=== PATIENT | female | born 1990 | race African-American/Black ===

== ENCOUNTER 2017-04-04 13:19 | Emergency (ER) | payer OTHER ==
--- NOTE | 2017-04-04 14:10 | ER Document Report ---
ED Respiratory Problem - General Chief Complaint: Shortness Of Breath Stated Complaint: SHORTNESS OF BREATH Time Seen by Provider: 04/04/17 13:59 Notes: 26 yo female c/o "lump" in throat, pressure in right side of face and ear, feels dizzy and a little short of breath. all symptoms started this morning. no fever. no cough. + post nasal drip TRAVEL OUTSIDE OF THE [place] IN LAST 30 DAYS: No - HPI Onset: This morning Duration: Intermittent episodes Quality of pain: No pain Short of Breath: Mild Associated symptoms: Congestion, Cough, Facial pain, Sinus pain/pressure, Sore Throat. denies: Fever Similar symptoms previously: No Recently seen / treated by doctor: No Past Medical History - General Information source: Patient - Social History Smoking Status: Never Smoker Chew tobacco use (# tins/day): No Frequency of alcohol use: None Drug Abuse: None Lives with: Family Family History: Reviewed & Not Pertinent Patient has suicidal ideation: No Patient has homicidal ideation: No - Medical History Medical History: Negative Renal/ Medical History: Denies: Hx Peritoneal Dialysis GI Medical History: Reports: Hx Gastroesophageal Reflux Disease - Immunizations Hx Diphtheria, Pertussis, Tetanus Vaccination: Yes Review of Systems - Review of Systems Constitutional: No symptoms reported EENT: See HPI Cardiovascular: No symptoms reported Respiratory: See HPI Gastrointestinal: No symptoms reported Genitourinary: No symptoms reported Female Genitourinary: No symptoms reported Musculoskeletal: No symptoms reported Skin: No symptoms reported Hematologic/Lymphatic: No symptoms reported Neurological/Psychological: No symptoms reported Physical Exam - Vital signs Vitals: Temp Pulse Resp BP Pulse Ox 98.2 F 76 20 143/72 H 100 04/04/17 13:25 04/04/17 13:25 04/04/17 13:25 04/04/17 13:25 04/04/17 13:25 Interpretation: Normal - General General appearance: Appears well, Alert In distress: None - HEENT Head: Normocephalic, Atraumatic Eyes: Normal Conjunctiva: Normal Pupils: PERRL External canal: Normal Tympanic membrane: Serous effusion - right Sinus: Normal Mucous membranes: Normal, Moist Pharynx: Erythema. No: Tonsillar hypertrophy, Uvular edema, Potential airway comprom. Neck: Anterior cervical chain - right - Respiratory Respiratory status: No respiratory distress Chest status: Nontender Breath sounds: Normal Chest palpation: Normal - Cardiovascular Rhythm: Regular Heart sounds: Normal auscultation Murmur: No - Abdominal Inspection: Normal Distension: No distension Bowel sounds: Normal Tenderness: Nontender Organomegaly: No organomegaly - Back Back: Normal, Nontender - Extremities General upper extremity: Normal inspection, Nontender, Normal color, Normal ROM , Normal temperature General lower extremity: Normal inspection, Nontender, Normal color, Normal ROM , Normal temperature, Normal weight bearing. No: Lorie's sign - Neurological Neuro grossly intact: Yes Cognition: Normal Orientation: AAOx4 [place] Coma Scale Eye Opening: Spontaneous [place] Coma Scale Verbal: Oriented [place] Coma Scale Motor: Obeys Commands [place] Coma Scale Total: 15 Speech: Normal Motor strength normal: LUE, RUE, LLE, RLE Sensory: Normal - Psychological Associated symptoms: Normal affect, Normal mood - Skin Skin Temperature: Warm Skin Moisture: Dry Skin Color: Normal Course - Re-evaluation Re-evalutation: 04/04/17 14:09 no s/s soheila's. will get soft tissue neck. 04/04/17 14:50 soft tissue neck normal. results reviewed with patient. pt stable for discharge - Vital Signs Vital signs: Temp Pulse Resp BP Pulse Ox 98.2 F 76 20 143/72 H 100 04/04/17 13:25 04/04/17 13:25 04/04/17 13:25 04/04/17 13:25 04/04/17 13:25 Discharge - Discharge Clinical Impression: Sore throat Acute serous otitis media, right ear Qualifiers: Recurrence: not specified as recurrent Qualified Code(s): H65.01 - Acute serous otitis media, right ear Condition: Stable Disposition: HOME, SELF-CARE Instructions: Steroid Medication, Serous Otitis Media ([facility]), Decongestant- Antihistamine Medication ([facility]) Additional Instructions: Your throat xray was normal today I am prescribing an oral steroid to help with soft tissue swellling I recommend an over the counter antihistamine/decongestant such as Ayse D or Zyrtec D to help dry the fluid behind your right ear drum. This fluid may be the cause of your dizziness Push fluids and follow up with your primary care if symptoms persist Prescriptions: Prednisone [Deltasone 20 mg Tablet] 2 tab PO BID 16 Days
--- NOTE | 2017-04-04 15:05 | RADIOLOGY REPORT (SQ) ---
EXAM DESCRIPTION: SOFT TISSUE NECK COMPLETED DATE/TIME: 04/04/2017 2:24 pm REASON FOR STUDY: "lump" in throat COMPARISON: None. NUMBER OF VIEWS: Two views. TECHNIQUE: AP and lateral radiographic image of the soft tissues of the neck. LIMITATIONS: None. FINDINGS: EPIGLOTTIS: Normal. Contour normal. Aryepiglottic folds normal. PREVERTEBRAL SOFT TISSUES: Normal. No soft tissue swelling. SUBGLOTTIC AREA: Normal. No narrowing. RETROPHARYNGEAL SPACE: Normal. No soft tissue masses. BONY STRUCTURES: No significant findings. LUNG APICES: Normal. OTHER: No radiopaque foreign body. No other significant finding. IMPRESSION: NEGATIVE STUDY OF THE SOFT TISSUES OF THE NECK. TECHNICAL DOCUMENTATION: JOB ID: [id number] [employer]- All Rights Reserved
[2017-04-04 15:06] VITALS: BP 130/74
== END 2017-04-04 15:05 | disposition home or self-care (01) ==
LOC: ER 13:19
DX: H65.01 Acute serous otitis media, right ear (principal); J02.9 Acute pharyngitis, unspecified; R06.02 Shortness of breath; R42 Dizziness and giddiness
CPT/HCPCS: 70360; 99284